=== PATIENT | female | born 1960 | race Caucasian/White ===

== ENCOUNTER → 2022-01-10 | Outpatient (CLI) | payer OTHER | END | disposition home or self-care (01) | LOC: LAB 18:00 → LAB SHORT 18:00 | DX: R30.9 Painful micturition, unspecified (principal) | CPT/HCPCS: 87077; 87086; 87186 ==

== ENCOUNTER 2024-06-05 09:09 | Day surgery (SDC) | payer OTHER ==
[2024-06-05] VITALS (9 sets, daily range): BP systolic 97–143; BP diastolic 57–84
[~2024-06-05] VITALS: Ht 154.9 cm; Wt 91.5 kg
[2024-06-05] MEDS ORDERED: Lactated Ringer's 1,000 ML IV SCH (09:50)
[2024-06-05] MEDS ORDERED: CeFAZolin Sodium 2,000 MG in NS 100 ML IV SCH (09:50)
[2024-06-05] MEDS ORDERED: TOPI50 PO (10:02)
[2024-06-05] MEDS ORDERED: propofoL 20 ML IV ONE (10:03)
[2024-06-05] MEDS ORDERED: PARO20 PO (10:03)
[2024-06-05] MEDS ORDERED: MULTI-VITAMIN1 EAC2 PO (10:04)
[2024-06-05] MEDS ORDERED: ZYRTEC10 M2 PO (10:04)
[2024-06-05] MEDS ORDERED: ASCORBIC ACID500 MG PO (10:05)
[2024-06-05] MEDS ORDERED: ZINC15 PO (10:05)
[2024-06-05] MEDS ORDERED: MAGCHL64ER PO (10:06)
[2024-06-05] MEDS ORDERED: CRANBERRY215 MG PO (10:07)
[2024-06-05] MEDS ORDERED: CINNAMON EXTRA500 MG PO (10:07)
[2024-06-05] MEDS ORDERED: VITAMIN D325 MC3 PO (10:08)
[2024-06-05] MEDS ORDERED: HYDHCL25 (10:11)
[2024-06-05] MEDS ORDERED: FLUOXETINE DR90 MG PO (10:11)
[2024-06-05] MEDS ORDERED: SUMA25 PO (10:12)
[2024-06-05] MEDS ORDERED: Bupivacaine 0.5% HCl 5 MG/ML 30MLVIAL ONE (10:57)
[2024-06-05] MEDS ORDERED: Midazolam HCl 1MG / ML 2ML Vial ONE (11:14)
[2024-06-05] MEDS ORDERED: Midazolam HCl 1MG / ML 2ML Vial IV ONE (11:15)
[2024-06-05] MEDS ORDERED: FentaNYL Citrate 50 MCG/ML 2 ML Injection ONE (11:32)
[2024-06-05] MEDS ORDERED: ePHEDrine Sulfate 50 MG/ML 1ML Injection ONE (11:53)
--- NOTE | 2024-06-05 12:44 | NUR ---
REPORT RECEIVED FROM MARQUITA MAYES. VSS. PT ON RA. PT ABLE TO REPOSITION SELF IN BED. PT REQUESTING PO FLUIDS AND TOLERATING THEM WELL. PT DENIES PAIN, NAUSEA OR OTHER DISCOMFORTS. PT HAS GAUZE/TAPE DRESSING TO LEFT CHEST/NECK THAT IS C/D/I.
--- NOTE | 2024-06-05 13:12 | NUR ---
Patient up to Ambulate independently. Gait steady. Discharge instructions reviewed with patient. Patient verbalizes understanding. Copy given to patient to take home.MEDIPORT INFO/STARTED KIT SENT WITH PT. PT DISCHARGED TO HOME, OUT VIA WHEELCHAIR WITH DISCHARGE INSTRUCTIONS AND BELONGINGS ON HAND.
== END 2024-06-05 13:12 | disposition home or self-care (01) ==
LOC: ORD 09:09 → ORSCMMR 09:09 → ORD 10:15
PROVIDERS: Surgery
PROC: 0JH60WZ Insertion of Totally Implantable Vascular Access Device into Chest Subcutaneous Tissue and Fascia, Open Approach (ICD-10-PCS; principal; 2024-06-05 10:15)
DX: C50.111 Malignant neoplasm of central portion of right female breast (principal); C77.3 Secondary and unspecified malignant neoplasm of axilla and upper limb lymph nodes; C79.51 Secondary malignant neoplasm of bone; Z17.1 Estrogen receptor negative status [ER-]; F41.9 Anxiety disorder, unspecified; F32.A Depression, unspecified; E66.9 Obesity, unspecified; Z68.38 Body mass index [BMI] 38.0-38.9, adult; K21.9 Gastro-esophageal reflux disease without esophagitis; Z79.899 Other long term (current) drug therapy
CPT/HCPCS: 77001; C1788; J0690; J1642; J2250; J2704; J3010; J7120

== ENCOUNTER 2025-05-06 13:31 | Emergency (ER) | payer OTHER ==
[~2025-05-06] VITALS: Ht 170.2 cm; Wt 83.9 kg
[~2025-05-06 13:31] MED LIST: ASCORBIC ACID500 MG PO; CINNAMON EXTRA500 MG PO; CRANBERRY215 MG PO; FLUOXETINE DR90 MG PO; HYDHCL25; MAGCHL64ER PO; MULTI-VITAMIN1 EAC2 PO; PARO20 PO; SUMA25 PO; TOPI50 PO; VITAMIN D325 MC3 PO; ZINC15 PO; ZYRTEC10 M2 PO
[2025-05-06 14:06] VITALS: BP 148/71
[2025-05-06] MEDS ORDERED: DiphenhydrAMINE HCl 50 MG/ML 1ML Vial IV ONE (14:10)
[2025-05-06] MEDS ORDERED: Prochlorperazine Edisylate 10 mg Vial IV ONE (14:10)
[2025-05-06] MEDS ORDERED: NS 1,000 ML IV SCH (14:10)
[2025-05-06] MEDS ORDERED: Dexamethasone Sodium Phosphate 4 MG/ML 1ML Vial IV ONE (14:10)
[2025-05-06] MEDS ORDERED: Ketorolac Tromethamine 15mg Vial IV ONE (14:10)
[2025-05-06 14:30] LABS: BASOPHILS ABSOLUTE AUTO 0.05 K/mm3 (0.00-0.23); BASOPHILS PERCENT AUTO 1 % (0-2); EOSINOPHILS ABSOLUTE AUTO 0.15 K/mm3 (0.00-0.68); EOSINOPHILS PERCENT AUTO 2 % (0-6); Hematocrit 47.0 % (33.0-51.0); Hemoglobin 15.2 g/dL (11.5-16.0); IMMATURE GRAN ABSOLUTE AUTO 0.06 K/mm3 (0.00-0.10); IMMATURE GRAN PERCENT AUTO 1 % (0-1); LYMPHOCYTES ABSOLUTE AUTO 1.24 K/mm3 (0.84-5.20); LYMPHOCYTES PERCENT AUTO 14 % (21-46); MONOCYTES ABSOLUTE AUTO 0.47 K/mm3 (0.16-1.47); MONOCYTES PERCENT AUTO 6 % (4-13); Mean Corpuscular HGB Conc 32.3 g/dL (31.5-36.5); Mean Corpuscular Volume 88 fL (80-100); NEUTROPHILS ABSOLUTE AUTO 6.64 K/mm3 (1.96-9.15); NEUTROPHILS PERCENT AUTO 77 % (41-73); NRBC ABSOLUTE 0.00 K/mm3 (0.00-0.02); NRBC Auto 0.0 /100 WBC (0.0-0.2); Platelet Count 212 K/mm3 (150-400); RDW Coefficient Variation 14.7 % (11.7-14.2); RDW Standard Deviation 47.3 fL (35.1-46.3)
[2025-05-06 14:49] LABS: Alanine Aminotransfer (ALT/SGP 22.0 U/L (12-78); Albumin, Blood 3.7 g/dL (3.4-5.0); Albumin/Globulin Ratio 1.0 (0.8-1.8); Anion Gap 8.0 mmol/L (3-11); Aspartate Aminotrans (AST/SGOT 33.0 U/L (12-37); Bilirubin, Total 0.3 mg/dL (0.1-1.0); Blood Urea Nitrogen 26.0 mg/dL (8-24); CO2, Blood 26.0 mmol/L (21-32); Calcium, Blood 8.8 mg/dL (8.5-10.1); Chloride, Blood 110.0 mmol/L (98-108); Creatinine, Blood 0.65 mg/dL (0.40-1.00); Globulin, Blood 3.8 g/dL (2.2-4.0); Glucose, Blood 111.0 mg/dL (70-99); Potassium, Blood 4.6 mmol/L (3.5-5.5); Sodium, Blood 139.0 mmol/L (136-145); Total Protein, Blood 7.5 g/dL (6.4-8.2)
== END 2025-05-06 20:53 | disposition home or self-care (01) ==
LOC: ER 13:31
PROVIDERS: Student in an Organized Health Care Education/Training Program
DX: G43.909 Migraine, unspecified, not intractable, without status migrainosus (principal); Z88.0 Allergy status to penicillin; Z88.2 Allergy status to sulfonamides; Z79.82 Long term (current) use of aspirin; Z79.899 Other long term (current) drug therapy; Z91.040 Latex allergy status; Z79.2 Long term (current) use of antibiotics
CPT/HCPCS: 80053; 85025; 96361; 96374; 96375; 99284-25; J0780; J1100; J1200; J1885; J7030

== ENCOUNTER → 2025-05-26 | Outpatient (CLI) | payer OTHER ==
[2025-05-26 17:46] LABS: Source, Urine Clean Catch
[2025-05-26 17:49] LABS: Bilirubin, Urine Neg (Neg); Color, Urine Yellow (P-Yellow); Glucose Qualitative, Urine Neg (Neg); Ketones, Urine 4+ (Neg); Leukocyte Esterase, Urine Neg (Neg); Protein, Urine 2+ (Neg); Specific Gravity, Urine 1.025 (1.003-1.022); Urobilinogen, Urine NORM (Normal)
[2025-05-26 17:55] LABS: Red Blood Cells, Urine 0-2 /hpf (0-2); White Blood Cells, Urine 0-2 /hpf (0-5)
== END ==
LOC: LAB SHORT 12:15 → LAB 12:15
PROVIDERS: Student in an Organized Health Care Education/Training Program
DX: R42 Dizziness and giddiness (principal); R82.998 Other abnormal findings in urine
CPT/HCPCS: 81001